=== PATIENT | male | born 1965 | race Caucasian/White ===

== ENCOUNTER → 2016-07-16 | Outpatient (CLI) | payer BC ==
--- NOTE | 2016-07-16 13:46 | XR ---
Cervical spine with flexion and extension views HISTORY: Foraminal stenosis 7 views of the cervical spine correlated to prior cervical spine MRI 10 May 2016, 2 view spine 08 April 2016 Postop changes are stable. Alignment is unchanged. Prevertebral soft tissues are normal. No listhesis on flexion and extension views. No significant foraminal encroachment evident. IMPRESSION: Stable postoperative findings.
== END | disposition home or self-care (01) ==
LOC: RADXRMAIN 11:29
PROVIDERS: ATTEND Neurological Surgery
DX: M99.71 Connective tissue and disc stenosis of intervertebral foramina of cervical region (principal); Z98.890 Other specified postprocedural states
CPT/HCPCS: 72052

== ENCOUNTER → 2018-04-02 | Outpatient (CLI) | payer BC ==
--- NOTE | 2018-04-04 12:55 | MR ---
EXAMINATION TYPE: MR cervical spine wo/w con DATE OF EXAM: 04/02/2018 COMPARISON: 05/10/2016 HISTORY: Cervicalgia CONTRAST: Performed utilizing 10 mL intravenous Gadavist gadolinium contrast. TECHNIQUE: Multiplanar multiecho imaging on a 3.0 Cinthia magnet is performed through the cervical spin e. FINDINGS: The craniovertebral junction is normal. Descent of the tonsils is less than 5 mm. No tonsil lar pegging or medullary kinking is evident.. Vertebral body alignment is normal. Postsurgical anjel nges are present C5-C6 and C7 from anterior cervical fusion. C7-T1: No focal disc herniation or significant disc bulge is evident. No spinal canal stenosis or n eural foraminal stenosis is present. C6-7: No focal disc herniation or significant disc bulge is evident. No spinal canal stenosis or marleny ral foraminal stenosis is present. C5-6: Broad-based central disc bulge is present with moderate anterior thecal sac compression. This h as some cord contact. Some mild cord deformity may be present. No cord signal abnormality is evident however.. C4-5: No focal disc herniation or significant disc bulge is evident. No spinal canal stenosis or marleny ral foraminal stenosis is present. C3-4: No focal disc herniation or significant disc bulge is evident. No spinal canal stenosis is pre sent. Some mild foraminal narrowing is present. C2-3: No focal disc herniation or significant disc bulge is evident. No spinal canal stenosis or marleny ral foraminal stenosis is present. No abnormal enhancement is evident. Right thyroid nodules again identified. This may have increased s lightly over the interval from 1.7 to 1.9 cm. Ultrasound thyroid is recommended for additional evalua tion. IMPRESSIONS: 1. Broad-based disc bulge C5-6 with mild anterior thecal sac compression, cord contact and some mild cord flattening. No signal abnormality within the cord is evident. AP spinal canal stenosis is not pr esent. Exam appears stable from 2016. 2. Enlarging right lobe thyroid nodule currently measuring 1.9 cm AP posterior medial right lobe thyr oid, up from 1.7 cm.
== END ==
LOC: RADMRIMAIN 18:14
PROVIDERS: ATTEND Psychiatry & Neurology Neurology
DX: M50.222 Other cervical disc displacement at C5-C6 level (principal); G95.29 Other cord compression
CPT/HCPCS: 72156; A9585

== ENCOUNTER → 2019-07-14 | Outpatient (CLI) | payer BC ==
--- NOTE | 2019-07-14 19:06 | MR ---
EXAMINATION TYPE: MR cervical spine wo con DATE OF EXAM: 07/14/2019 COMPARISON: Prior MR cervical spine 04/02/2018 HISTORY: Neck pain, stiffness, headaches, BUE radic, hx surgery 2019 TECHNIQUE: Multiplanar, multisequence images of the cervical spine were acquired. C2-C3: No evidence for degenerative disc disease. No disc bulge/herniation or protrusion. No Canal stenosis. Foramina are patent bilaterally. C3-C4: There is foraminal encroachment on the right greater than left due to some facet arthropathy, uncovertebral joint hypertrophy, no disc herniation C4-C5: Bilateral foraminal encroachment is present, there is facet arthropathy, uncovertebral joint h ypertrophy, no disc herniation C5-C6: Posterior extension of heart disc is again seen causing mass effect on the anterior thecal sac and contacting the anterior cervical cord, there is some mild left-sided foraminal encroachment like ly due to some uncovertebral joint hypertrophy C6-C7: No evidence for degenerative disc disease. No disc bulge/herniation or protrusion. No Canal stenosis. Foramina are patent bilaterally. C7-T1: No evidence for degenerative disc disease. No disc bulge/herniation or protrusion. No Canal stenosis. Foramina are patent bilaterally. Cervical segments are intact with the exception of the laminectomies at the postop site. Patient is status post anterior cervical fusion and discectomy at C6-C7, prior fusion present at C5-6 with inter vertebral metallic device again seen, posterior fusion present C5-C7. Susceptibility artifact present due to patient's hardware. No significant spinal stenosis. There is stable and anatomical alignment. Cervical spinal cord is of normal signal. Craniovertebral junction relationships are within normal limits. IMPRESSION: Findings are similar to prior exam. Postop changes, degenerative disc disease and foraminal encroachm ent as described.
== END ==
LOC: RADMRIMAIN 16:50
PROVIDERS: ATTEND Nurse Practitioner Family
DX: M50.10 Cervical disc disorder with radiculopathy, unspecified cervical region (principal); Z98.890 Other specified postprocedural states
CPT/HCPCS: 72141

== ENCOUNTER → 2020-06-15 | Outpatient (CLI) | payer BC ==
--- NOTE | 2020-06-15 11:23 | FL ---
EXAMINATION TYPE: FL barium swallow w video DATE OF EXAM: 06/15/2020 MODIFIED SWALLOW / DEGLUTITION STUDY CLINICAL HISTORY: Dysphagia. History of multiple neck surgeries. TECHNIQUE: Deglutition study is performed utilizing thin liquid barium, honey and nectar thick liqui d barium, barium thick pudding, and barium coated cracker. 1 minute 11 seconds of fluoro time and 0 images obtained. COMPARISON: None. FINDINGS: The oral and pharyngeal phases show satisfactory initiation and propagation with all modali ties tested. Satisfactory mastication is seen with solid modalities tested. There is no evidence of penetration or aspiration with any modality tested. No significant pharyngeal residue was appreciate d. Surgical changes C5-C7 level with some ossific fusion, no suspicious large anterior osteophyte pro jection. IMPRESSION: Normal deglutition study. Please refer to speech therapist notes for further details if necessary.
--- NOTE | 2020-06-15 12:30 | US ---
EXAMINATION TYPE: US thyroid st tissue head/neck DATE OF EXAM: 06/15/2020 COMPARISON: 02/05/2012 CLINICAL HISTORY: 54-year-old male E04.1 SINGLE THYROID NODULE. TECHNIQUE: Multiple sonographic images of the thyroid gland are obtained. FINDINGS: GLAND SIZE: Right Lobe: 4.8 x 1.9 x 2.2 cm Overall Parenchyma: homogenous Left Lobe: 4.0 x 1.7 x 1.2 cm Overall Parenchyma: homogeneous Isthmus Thickness: 0.3 cm NODULES RIGHT: # of nodules measured on right: 1 1. 2.6 X 1.8 x 2.1 cm heterogeneous solid nodule that is wider than tall, with smooth margins with punctate calcifications. Prior size: 2.7 x 1.8 x 1.7 cm LEFT: # of nodules measured on left: 0 ISTHMUS: # of nodules measured in the isthmus: 0 Bilateral neck scanned, no evidence of lymphadenopathy. IMPRESSION: Solid nodule in the right lobe measures 2.6 x 2.1 cm with punctate calcifications. While the overall size is not significantly changed, the previous internal cystic component is decreased. If this was n ot previously sampled, FNA can be considered.
== END | disposition home or self-care (01) ==
LOC: RADUSWWP 10:16
PROVIDERS: ATTEND Family Medicine
DX: E04.1 Nontoxic single thyroid nodule (principal); R13.12 Dysphagia, oropharyngeal phase
CPT/HCPCS: 74230; 76536

== ENCOUNTER → 2020-06-18 | Outpatient (CLI) | payer BC ==
--- NOTE | 2020-06-18 10:03 | FL ---
EXAMINATION TYPE: FL barium swallow DATE OF EXAM: 06/18/2020 CLINICAL HISTORY: History of multiple prior neck surgeries with dysphagia. TECHNIQUE: A double contrast esophagram is performed utilizing air and barium. A total of 17 second s of fluoroscopic time was utilized during procedure and 47 images obtained COMPARISON: Modified barium swallow 3 days ago. Cervical spine x-rays 2017. FINDINGS: The esophagus shows satisfactory motility and emptying into the stomach. No diverticulum. P osterior interpedicular rods and screws transfix C5-C7 levels, there is anterior fusion plate at C6-C 7 level, there is additional fusion hardware at C5-C6 level. There is desired ossific fusion of the C 5-C7 vertebra redemonstrated. No suspicious anterior bony projections. No evidence of fixed hiatal he rnia or stricture noted. No Intraluminal mass. Small sliding-type hiatal hernia noted towards end of study. No significant gastroesophageal reflux was seen during real time performance of this study. IMPRESSION: No significant abnormality is seen to account for patient's symptoms.
== END | disposition home or self-care (01) ==
LOC: RADFLMAIN 09:16
PROVIDERS: ATTEND Family Medicine
DX: R13.12 Dysphagia, oropharyngeal phase (principal)
CPT/HCPCS: 74220

== ENCOUNTER → 2021-12-23 | Outpatient (CLI) | payer BC ==
--- NOTE | 2021-12-24 04:38 | MR ---
EXAMINATION TYPE: MR cervical spine wo/w con DATE OF EXAM: 12/23/2021 COMPARISON: 07/14/2019 HISTORY: Bilateral upper extremity numbness, history of multiple surgeries CONTRAST: Standard multiplanar, multisequence MRI departmental protocol images were obtained without contrast a nd with 10 mL intravenous Gadavist gadolinium contrast. The cervical vertebra have fairly normal alignment. There is metal artifact from anterior fusion surg edilberto in the lower cervical spine from C5 to C7. Cervical spinal cord has normal signal pattern. No angelina ma. No spinal stenosis. There is small posterior endplate spur formation at C5-6 without significant impingement on the spinal canal. No spinal stenosis. Spinal canal measures 10 mm at the narrowest poi nt. The brainstem is intact. There is metal artifact from posterior fusion surgery at C5 and C6 and C 7. No pathologic enhancement. No evidence of cervical paraspinal mass. IMPRESSION: Anterior and posterior fusion surgery at lower cervical spine. No spinal stenosis. No fracture seen. No adverse change compared to old exam.
== END | disposition home or self-care (01) ==
LOC: RADMRIMAIN 19:05
PROVIDERS: ATTEND Internal Medicine
DX: M54.2 Cervicalgia (principal); M43.22 Fusion of spine, cervical region
CPT/HCPCS: 72156; A9585

== ENCOUNTER 2022-06-03 09:28 | Observation (INO) | payer BC ==
--- NOTE | 2022-06-03 10:52 | ED ---
General Adult HPI - General Chief complaint: Neuro Symptoms/Deficit Stated complaint: lt sided tingling/numbness x3 wks Time Seen by Provider: 06/03/22 09:50 Source: patient Mode of arrival: ambulatory Limitations: no limitations - History of Present Illness Initial comments: Dictation was produced using [employer] dictation software. please excuse any grammatical, word or spelling errors. Chief Complaint: 56-year-old male presents to emergency department for sending facial and extremity symptoms History of Present Illness: Is a 56-year-old male who has past medical history of chronic neck pain and cervical spinal surgery. Patient states that over the last 3 weeks she's been having a strange episodes where he would intermittently experience facial numbness, facial cyanosis and extremity numbness. States he's been answered. With upper extremity exertion. Patient denies any chest pain or shortness of breath. He also would report that his vision gets slightly blurry along with the paresthesias experience. Patient has chronic neck pain. States that he has tightness in her shoulders. No syncope or presyncope The ROS documented in this emergency department record has been reviewed and confirmed by me. Those systems with pertinent positive or negative responses have been documented in the HPI. All other systems are other negative and/or noncontributory. PHYSICAL EXAM: General Impression: Alert and oriented x3, not in acute distress HEENT: Normocephalic atraumatic, extra-ocular movements intact, pupils equal and reactive to light bilaterally, mucous membranes moist, fullness to the supraclavicular space bilaterally Cardiovascular: Heart regular rate and rhythm Chest: Able to complete full sentences, no retractions, no tachypnea Abdomen: abdomen soft, non-tender, non-distended, no organomegaly Musculoskeletal: Pulses present and equal in all extremities, no peripheral edema Motor: no focal deficits noted Neurological: CN II-XII grossly intact, no focal motor or sensory deficits noted Skin: Intact with no visualized rashes Psych: Normal affect and mood ED course: 56-year-old male presents to the emergency room for strange symptoms of skin discoloration to the face and paresthesias to the extremity and face. Vital signs upon arrival shows blood pressure 232/129, worse vital signs within acceptable limits. Nursing notes and chart review was performed My EKG interpretation: Ventricular rate 75, sinus rhythm,. Interval 172, QRS 86, QTC 391. No IL prolongation, no QTC prolongation, no ST or T-wave changes noted. Overall, this EKG is unremarkable Laboratory evaluation obtained. Labs are unremarkable. CT angiography of the head and neck was obtained. I requested the radiology to include the upper chest. No evidence of any acute processes. Patient reevaluated at bedside found with stable medical condition. Symptoms are worrisome for CVA causing left lower facial and left hand sensory deficit along with associateds elevated blood pressure. Patient be admitted to [facility] with consultation to neurology. Patient given aspirin. Was pt. sent in by a medical professional or institution? @ no Did you speak to anyone other than the patient for history? @ Did you review nursing and triage notes? @ yes, agree Were old charts reviewed? @ no Differential Diagnosis? @ MDM Differential Altered Mental Status: Hypoglycemia, DKA, hypercapnia, ETOH, overdose, CO poisoning, trauma, myxedema coma, HTN encephalopathy, infection, encephalitis, psychosis, intercranial hemorrhage, hepatic encephalopathy, meningitis, CVA this is not meant to be an all-inclusive list EKG interpreted by me (3pts min.)? @Yes, see above X-rays interpreted by me (1pt min.)? @ none CT interpreted by me (1pt min.)? @, See above U/S interpreted by me (1pt. min.)? @ none What testing was considered but not performed? (CT, X-rays, U/S, labs)? Why? @ no What meds were considered but not given? Why? @ no Did you discuss the management of the patient with other professionals? @Spoke with hospitalist, Dr. Connor Did you reconcile home meds? @ none Was smoking cessation discussed for >3mins.? @ none Was critical care preformed (if so, how long)? @ none Were there social determinants of health that impacted care today? How? (Homelessness, low income, unemployed, alcoholism, drug addiction, transportation, low edu. Level, literacy, decrease access to med. care, [facility], rehab)? @ no Was there de-escalation of care discussed even if they declined? (Discuss DNR or withdrawal of care, Hospice)? @Not applicable What co-morbidities impacted this encounter? (DM, HTN, Smoking, COPD, CAD, Cancer, CVA, Hep., AIDS, mental health diagnosis, sleep apnea, morbid obesity)? @ History of chronic neck pain made differential more broad Was patient admitted / discharged? @Admitted Undiagnosed new problem with uncertain prognosis? @ yes Drug Therapy requiring intensive monitoring for toxicity (Heparin, Nitro, Insulin, Cardizem)? @ none Were any procedures done? @ none Diagnosis/symptom? @Neuropathic symptoms suspicious for cerebrovascular accident Acute, or Chronic, or Acute on Chronic? @Acute on chronic Uncomplicated (without systemic symptoms) or Complicated (systemic symptoms)? @ default Side effects of treatment? @ none Exacerbation, Progression, or Severe Exacerbation] @ no Poses a threat to life or bodily function? @ no - Related Data Home Medications Medication Instructions Recorded Confirmed Ibuprofen [Motrin] 800 mg PO Q8H PRN 06/03/22 06/03/22 Multivitamins, Thera [Multivitamin 1 tab PO DAILY 06/03/22 06/03/22 (formulary)] Omeprazole [PriLOSEC] 20 mg PO DAILY 06/03/22 06/03/22 Allergies Allergy/AdvReac Type Severity Reaction Status Date / Time No Known Allergies Allergy Verified 06/03/22 12:36 Review of Systems ROS Statement: Those systems with pertinent positive or pertinent negative responses have been documented in the HPI. ROS Other: All systems not noted in ROS Statement are negative. Past Medical History Past Medical History: Hypertension Additional Past Medical History / Comment(s): Neck pain History of Any Multi-Drug Resistant Organisms: None Reported Past Surgical History: Orthopedic Surgery Additional Past Surgical History / Comment(s): Neck Past Psychological History: No Psychological Hx Reported Smoking Status: Never smoker Past Alcohol Use History: Occasional Past Drug Use History: Marijuana General Exam Limitations: no limitations Course Vital Signs 06/03/22 06/03/22 06/03/22 09:36 10:56 12:00 Temperature 98.4 F Pulse Rate 83 Pulse Rate [ 83 Left Sitting Pulse Oximetery ] Respiratory 18 18 Rate Blood Pressure 232/129 Blood Pressure 193/115 193/124 [Left Arm Sitting] Blood Pressure 194/121 [Right Arm Sitting] O2 Sat by Pulse 98 97 Oximetry Medical Decision Making - Lab Data Result diagrams: 06/03/22 10:54 06/03/22 10:54 Lab Results 06/03/22 06/03/22 06/03/22 Range/Units 10:54 10:54 10:54 WBC 9.7 (3.8-10.6) k/uL RBC 4.87 (4.30-5.90) m/uL Hgb 15.7 (13.0-17.5) gm/dL Hct 45.0 (39.0-53.0) % MCV 92.4 (80.0-100.0) fL MCH 32.2 (25.0-35.0) pg MCHC 34.9 (31.0-37.0) g/dL RDW 13.0 (11.5-15.5) % Plt Count 238 (150-450) k/uL MPV 8.2 Neutrophils % 58 % Lymphocytes % 30 % Monocytes % 6 % Eosinophils % 3 % Basophils % 1 % Neutrophils # 5.6 (1.3-7.7) k/uL Lymphocytes # 2.9 (1.0-4.8) k/uL Monocytes # 0.6 (0-1.0) k/uL Eosinophils # 0.3 (0-0.7) k/uL Basophils # 0.1 (0-0.2) k/uL PT 9.8 (9.0-12.0) sec INR 0.9 (<1.2) APTT 25.6 (22.0-30.0) sec Sodium 141 (137-145) mmol/L Potassium 4.4 (3.5-5.1) mmol/L Chloride 104 (98-107) mmol/L Carbon Dioxide 25 (22-30) mmol/L Anion Gap 12 mmol/L BUN 21 H (9-20) mg/dL Creatinine 0.83 (0.66-1.25) mg/dL Est GFR (CKD-EPI)AfAm >90 (>60 ml/min/1.73 sqM) Est GFR (CKD-EPI)NonAf >90 (>60 ml/min/1.73 sqM) Glucose 110 H (74-99) mg/dL Calcium 9.8 (8.4-10.2) mg/dL Troponin I (0.000-0.034) ng/mL 06/03/22 Range/Units 10:54 WBC (3.8-10.6) k/uL RBC (4.30-5.90) m/uL Hgb (13.0-17.5) gm/dL Hct (39.0-53.0) % MCV (80.0-100.0) fL MCH (25.0-35.0) pg MCHC (31.0-37.0) g/dL RDW (11.5-15.5) % Plt Count (150-450) k/uL MPV Neutrophils % % Lymphocytes % % Monocytes % % Eosinophils % % Basophils % % Neutrophils # (1.3-7.7) k/uL Lymphocytes # (1.0-4.8) k/uL Monocytes # (0-1.0) k/uL Eosinophils # (0-0.7) k/uL Basophils # (0-0.2) k/uL PT (9.0-12.0) sec INR (<1.2) APTT (22.0-30.0) sec Sodium (137-145) mmol/L Potassium (3.5-5.1) mmol/L Chloride (98-107) mmol/L Carbon Dioxide (22-30) mmol/L Anion Gap mmol/L BUN (9-20) mg/dL Creatinine (0.66-1.25) mg/dL Est GFR (CKD-EPI)AfAm (>60 ml/min/1.73 sqM) Est GFR (CKD-EPI)NonAf (>60 ml/min/1.73 sqM) Glucose (74-99) mg/dL Calcium (8.4-10.2) mg/dL Troponin I <0.012 (0.000-0.034) ng/mL Disposition Clinical Impression: Paresthesias Disposition: ADMITTED IP TO THIS HOSP Condition: Fair Referrals: Kamala Neves MD [Primary Care Provider] - 1-2 days Decision Time: 13:37
[2022-06-03 11:04] LABS: Basophils # (A) 0.1 k/uL (0-0.2); Basophils % (A) 1 %; Eosinophils # (A) 0.3 k/uL (0-0.7); Eosinophils % (A) 3 %; HGB 15.7 gm/dL (13.0-17.5); Lymphocytes # (A) 2.9 k/uL (1.0-4.8); Lymphocytes % (A) 30 %; MCH 32.2 pg (25.0-35.0); MCHC 34.9 g/dL (31.0-37.0); MCV 92.4 fL (80.0-100.0); Mean Platelet Volume 8.2; Monocytes # (A) 0.6 k/uL (0-1.0); Monocytes % (A) 6 %; Neutrophils # (A) 5.6 k/uL (1.3-7.7); Neutrophils % (A) 58 %; Platelet Count 238 k/uL (150-450); RBC 4.87 m/uL (4.30-5.90); WBC 9.7 k/uL (3.8-10.6)
[2022-06-03 11:29] LABS: African American GFR (CKD) >90 (>60 ml/min/1.73 sqM); Anion Gap 12 mmol/L; Blood Urea Nitrogen 21 mg/dL (9-20); Calcium 9.8 mg/dL (8.4-10.2); Carbon Dioxide 25 mmol/L (22-30); Chloride 104 mmol/L (98-107); Glucose 110 mg/dL (74-99); Non-African American GFR(CKD) >90 (>60 ml/min/1.73 sqM); Potassium 4.4 mmol/L (3.5-5.1); Sodium 141 mmol/L (137-145)
[2022-06-03 11:33] LABS: INR 0.9 (<1.2); Partial Thromboplastin Time 25.6 sec (22.0-30.0); Prothrombin Time 9.8 sec (9.0-12.0)
--- NOTE | 2022-06-03 12:32 | CT ---
EXAMINATION TYPE: CT angio head neck CT DLP: 1192.2 mGycm, Automated exposure control for dose reduction was used. 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 Pt c/o LT side numbness, tingling x3 weeks. LT side facial swe lling/color change TECHNIQUE: Axially acquired helical CT angiogram of the head and neck was obtained with contrast. Axi al images are supplemented with 3D reconstructions which were post-processed at an independent [facility]st [facility]. NASCET criteria used. Contrast used:65 mL of Isovue 370 with IV Contrast, Oral contrast used: None. FINDINGS: CTA HEAD: No evidence of acute intracranial hemorrhage, mass effect, or midline shift. The ventricles, sulci, a nd cisterns are unremarkable. The visualized portions of the internal carotid arteries, middle cerebral arteries, anterior cerebral arteries, and posterior cerebral arteries are patent. The basilar and vertebral arteries are patent. CTA NECK: Right Carotid System: The common carotid artery and external carotid artery are patent. The carotid bifurcation demonstrate s calcified and noncalcified plaque with less than 25% stenosis. Evidence of hemodynamically signific ant stenosis. The remaining portions of the internal carotid artery demonstrate normal size without s ignificant narrowing. Left Carotid System: The common carotid artery and external carotid artery are patent. The carotid bifurcation demonstrate s calcified and noncalcified plaque with 25%. The remaining portions of the internal carotid artery d emonstrate normal size without significant narrowing. Vertebral arteries are patent without evidence hemodynamically significant stenosis. There is a three-vessel aortic arch. The origins of the great vessels are patent. No evidence of hemo dynamically significant stenosis. No evidence of mediastinal mass or lymphadenopathy. The lung apices are clear without evidence of mass or suspicious nodule. Postsurgical changes to the spine with fixa tion hardware in place. Right thyroid gland nodule with some peripheral calcification measuring up to 1.1 cm. IMPRESSION: 1. No evidence of dissection of the cervical internal carotid arteries or vertebral arteries or any e vidence of significant stenosis at the carotid bifurcations. 2. No evidence of intracranial high-grade stenosis or intracranial aneurysm. 3. No acute thoracic process. No evidence of mass. 4. Right thyroid gland nodule similar to prior ultrasound on 06/15/2020
[2022-06-03] MEDS ORDERED: ASPIRIN 81 MG PO STA (13:22)
[2022-06-03] MEDS ORDERED: NALOXONE 0.4 MG/ML 1 ML VIAL IV PRN (13:31)
[2022-06-03] MEDS: SODIUM CHLORIDE 0.9% 1,000 ML IV SCH (13:46)
[2022-06-03] MEDS ORDERED: IBUPROFEN 800 MG TAB PO STA (14:13)
--- NOTE | 2022-06-03 15:44 | P.CNNES ---
History of Present Illness Consult date: 06/03/22 Requesting physician: Michele Evans Reason for Consult: suspect CVA History of Present Illness: This is a 56-year-old gentleman with significant chronic neck pain status post 5 neck surgeries who presented because of worsening numbness over the left side of face as well as visual disturbance. Patient stated that he is been having the tingling over the left V2 distribution for years but in the last 1 month whenever his right neck pain get worse he has numbness over the left V2 distribution that goes to the entire left face with visual disturbance for the past 1-1/2 months and has been constant. He stated that he was told by his that his nose lips turn blue when this happens. He said that this only happens when it he has severe right neck pain and neck pain he has been having it for years and it radiates to the right shoulder left shoulder and the upper neck and again the neck pain is over the right posterior neck region. He denies any focal weakness in the lower extremities, any difficulty getting his words out. He had 5 surgeries to the neck and the last surgery was about 2 years ago but continues to have a ongoing neck pain. His surgeries was over C5-C6-C7 region. He was evaluated by different surgeons. He stated that the surgery was at anterior approach as well as posterior approach. He is been having some difficulty swallowing since he had that neck surgery. She denies history of diabetes or high blood pressure or heart attack. Patient denies off any family history of multiple sclerosis. Patient denies off tobacco use or illicit drug use. He socially drinks alcohol. He denies off any family history of young stroke. Of note for his numbness patient tried gabapentin but had side effects to them. Alert would not be approved by insurance according to him. Some of the workup during this hospital visit consisted of: CBC with differential is unremarkable Chemistry panels glucose is 110 ambulance 21 otherwise rest is unremarkable. CT angiography of the head and neck is reported as no evidence of dissection of cervical internal carotid arteries or vertebral arteries or any evidence of significant stenosis at the carotid bifurcation. No evidence of intracranial high-grade stenosis or intracranial aneurysm. No acute thoracic process. No evidence of mass. Right thyroid gland nodule similar to prior ultrasound on 06/15/2020 Review of Systems Review of system: The 12 point system was reviewed and apparent positive and negative per HPI. Past Medical History Past Medical History: Hypertension Additional Past Medical History / Comment(s): Neck pain History of Any Multi-Drug Resistant Organisms: None Reported Past Surgical History: Orthopedic Surgery Additional Past Surgical History / Comment(s): Neck Past Psychological History: No Psychological Hx Reported Smoking Status: Never smoker Past Alcohol Use History: Occasional Past Drug Use History: Marijuana Medications and Allergies Home Medications Medication Instructions Recorded Confirmed Type Ibuprofen [Motrin] 800 mg PO Q8H PRN 06/03/22 06/03/22 History Multivitamins, Thera [Multivitamin 1 tab PO DAILY 06/03/22 06/03/22 History (formulary)] Omeprazole [PriLOSEC] 20 mg PO DAILY 06/03/22 06/03/22 History Allergies Allergy/AdvReac Type Severity Reaction Status Date / Time No Known Allergies Allergy Verified 06/03/22 12:36 Physical Examination - Vital Signs Vital Signs: Vital Signs Temp Pulse Pulse Resp BP BP BP 06/03/22 12:00 83 18 193/124 06/03/22 10:56 193/115 194/121 06/03/22 09:36 98.4 F 83 18 232/129 Pulse Ox 06/03/22 12:00 97 06/03/22 10:56 06/03/22 09:36 98 Intake and Output 06/03/22 06/03/22 06/03/22 06:59 14:59 22:59 Other: Weight 108.862 kg GENERAL: The patient is lying in bed and is not in acute distress. CHEST: The heart rate is regular rate rhythm. No murmurs to auscultation. LUNG: Clear to auscultation bilaterally no wheezing noted throughout. Not labored breathing. ABDOMEN/GI: Bowel sounds present in all 4 quadrants. No tenderness to palpation throughout. NEUROLOGICAL: Higher mental function: The patient is awake, alert, oriented to self, place and time. Patient is following commands. No aphasia and no neglect. Cranial nerves: The pupils are round, equal and reactive to light and accommodat ion. Visual chambers are full to confrontation throughout. Extraocular movement is intact no nystagmus is noted. Facial sensation is decrease to touch over the left V2 but otherwise normal throughout. The facial strength is normal throughout. Hearing is normal bilaterally to hand rub. Tongue is midline and moved [id number] without any difficulty. No dysarthria is noted. Shoulder shrug is normal bilaterally. Motor: The strength are uppers forearm flexion/extension are 4+ to 5-, proximal are 5- for extension while flexion are 5/5. Lowers are 5 over 5 throughout. Normal tone and bulk. Has old scars over the bilateral elbow region from prior surgeries. Cerebellum: Normal finger to nose bilaterally. Sensation: Sensation is normal to touch throughout. Reflexes (right/left): Biceps 3+; triceps2+; brachioradialis2+; patellar 2+; ankles 2+. Plantars are mute bilaterally. Results - Laboratory Findings CBC and BMP: 06/03/22 10:54 06/03/22 10:54 Abnormal Lab Findings: Abnormal Labs 06/03/22 10:54 BUN 21 H Glucose 110 H Assessment and Plan Assessment: This is a 56-year-old gentleman with has chronic ongoing posterior neck pain status post 5 cervical surgery (C5-C6-C7, anterior and posterior approach) who has been having tingling over the left V2 distribution for years but in the past 1-1/2 month has worsened when he has severe posterior neck pain and now has numbness over the left side of the face over past 1.5 months and has become constant. * Paresthesia over the left side of the face that progressively getting worse over the last one and half months and he notices it when he and he has severe neck pain: Possible due to his ongoing cervical issues especially since has ongoing neck pain with hyperreflexia of uppers. Rule out any intracranial process. * Ongoing right posterior neck pain tatus post 5 cervical surgery (C5-C6-C7, anterior and posterior approach) and last surgery was 2 years ago Plan: I ordered MRI of the brain with and without to rule out any intracranial process that would explain his symptoms such as a stroke versus mass versus demyelination. Ordered vitamin B12, folate, TSH, hemoglobin A1c for the paresthesia I consulted orthopedic surgery team for his ongoing neck pain and has brisk reflexes. She was notified that to hold off until the MRI but he is adamant on seeing a specialist for his ongoing neck pain. Patient does have a stroke then the will get the rest the stroke workup and will start the patient on aspirin and Lipitor but will hold off for now PT and OT are consulted We'll defer the rest of the medical management to primary team The plan was discussed with the patient. Thank you for the consultation Time with Patient: Greater than 30
[2022-06-03] MEDS: ACETAMINOPHEN TAB 325 MG TAB PO PRN (18:51)
[2022-06-03] MEDS: KETOROLAC 15 MG/ML 1 ML VIAL IVP PRN (22:17)
--- NOTE | 2022-06-03 22:27 | P.HPIM ---
History of Present Illness H&P Date: 06/03/22 Chief Complaint: Left-sided tingling and numbness 56-year-old male who has past medical history of chronic neck pain and cervical spinal surgery. Patient states that over the last 3 weeks she's been having a strange episodes where he would intermittently experience facial numbness, facial cyanosis and extremity numbness. States he's been answered. With upper extremity exertion. Patient denies any chest pain or shortness of breath. He also would report that his vision gets slightly blurry along with the paresthesias experience. Patient has chronic neck pain. States that he has tightness in her shoulders. No syncope or presyncope Blood work completed in ED reveals a WBC of 9.7, hemoglobin 15.7 and platelet count of 238, sodium 141, potassium 4.4, BUN/creatinine of 21/0.83 and blood glucose of 110; troponin less than 0.012 CT angiography of the head and neck is reported as no evidence of dissection of cervical internal carotid arteries or vertebral arteries or any evidence of significant stenosis at the carotid bifurcation. No evidence of intracranial h igh-grade stenosis or intracranial aneurysm. No acute thoracic process. No evidence of mass. Right thyroid gland nodule similar to prior ultrasound on 06/15/2020 Past Medical History Past Medical History: Hypertension Additional Past Medical History / Comment(s): Neck pain History of Any Multi-Drug Resistant Organisms: None Reported Past Surgical History: Orthopedic Surgery Additional Past Surgical History / Comment(s): Neck Past Psychological History: No Psychological Hx Reported Smoking Status: Never smoker Past Alcohol Use History: Occasional Past Drug Use History: Marijuana Medications and Allergies Home Medications Medication Instructions Recorded Confirmed Type Ibuprofen [Motrin] 800 mg PO Q8H PRN 06/03/22 06/03/22 History Multivitamins, Thera [Multivitamin 1 tab PO DAILY 06/03/22 06/03/22 History (formulary)] Omeprazole [PriLOSEC] 20 mg PO DAILY 06/03/22 06/03/22 History Allergies Allergy/AdvReac Type Severity Reaction Status Date / Time No Known Allergies Allergy Verified 06/03/22 12:36 Physical Exam Vitals: Vital Signs Temp Pulse Pulse Resp BP BP BP 06/03/22 12:00 83 18 193/124 06/03/22 10:56 193/115 194/121 06/03/22 09:36 98.4 F 83 18 232/129 Pulse Ox 06/03/22 12:00 97 06/03/22 10:56 06/03/22 09:36 98 Intake and Output 06/02/22 06/03/22 06/03/22 22:59 06:59 14:59 Other: Weight 108.862 kg General Impression: Alert and oriented x3, not in acute distress HEENT: Normocephalic atraumatic, extra-ocular movements intact, pupils equal and reactive to light bilaterally, mucous membranes moist, fullness to the supraclavicular space bilaterally Cardiovascular: Heart regular rate and rhythm Chest: Able to complete full sentences, no retractions, no tachypnea Abdomen: abdomen soft, non-tender, non-distended, no organomegaly Musculoskeletal: Pulses present and equal in all extremities, no peripheral edema Motor: no focal deficits noted Neurological: CN II-XII grossly intact, no focal motor or sensory deficits noted Skin: Intact with no visualized rashes Psych: Normal affect and mood Results CBC & Chem 7: 06/03/22 10:54 06/03/22 10:54 Labs: Abnormal Lab Results - Last 24 Hours (Table) 06/03/22 Range/Units 10:54 BUN 21 H (9-20) mg/dL Glucose 110 H (74-99) mg/dL Assessment and Plan Assessment: 1. Paresthesias; rule out TIA versus CVA - Patient did have CT angiography of the head and neck is reported as no evidence of dissection of cervical internal carotid arteries or vertebral arteries or any evidence of significant stenosis at the carotid bifurcation. No evidence of intracranial high-grade stenosis or intracranial aneurysm. No acute thoracic process. No evidence of mass. Right thyroid gland nodule similar to prior ultrasound on 06/15/2020 -- MRI of the brain with and without to rule out any intracranial process that would explain his symptoms such as a stroke versus mass versus demyelination. Ordered vitamin B12, folate, TSH, hemoglobin A1c for the paresthesia 2. Right posterior neck pain; patient is status post 5 cervical surgeries with last one done 2 years ago -- Orthopedic surgery is consulted - Patient takes Motrin 800 mg 3 times a day when necessary 3. Hypertension; currently not on any antihypertensive therapy 4. Gastroesophageal reflux disease; continue with home PPI therapy 5. Mild TAVO; increase fluid intake; we will monitor renal function and electrolytes DVT prophylaxis; SCDs CODE STATUS; full code
[2022-06-03 23:52] LABS: Glucose,Whole Blood 105 mg/dL (70-110)
[2022-06-04] MEDS ORDERED: hydrALAZINE HCL 20 MG/ML 1 ML VIAL IVP STA (00:58)
[2022-06-04] MEDS: lisinopriL 10 MG TAB PO SCH ×2 (01:14→08:20)
[2022-06-04] MEDS ORDERED: KETOROLAC 15 MG/ML 1 ML VIAL IVP SCH ×3 (04:00→21:58)
[2022-06-04] MEDS: KETOROLAC 15 MG/ML 1 ML VIAL IVP PRN ×2 (06:53→12:52)
[2022-06-04 07:41] LABS: Basophils # (A) 0.1 k/uL (0-0.2); Basophils % (A) 1 %; Eosinophils # (A) 0.3 k/uL (0-0.7); Eosinophils % (A) 3 %; HCT 42.1 % (39.0-53.0); HGB 15.1 gm/dL (13.0-17.5); Lymphocytes # (A) 3.1 k/uL (1.0-4.8); Lymphocytes % (A) 32 %; MCH 32.8 pg (25.0-35.0); MCHC 35.8 g/dL (31.0-37.0); MCV 91.6 fL (80.0-100.0); Mean Platelet Volume 8.7; Monocytes # (A) 0.8 k/uL (0-1.0); Monocytes % (A) 8 %; Neutrophils # (A) 5.2 k/uL (1.3-7.7); Neutrophils % (A) 53 %; Platelet Count 203 k/uL (150-450); RDW 13.6 % (11.5-15.5); WBC 9.7 k/uL (3.8-10.6)
[2022-06-04 08:11] LABS: African American GFR (CKD) >90 (>60 ml/min/1.73 sqM); Anion Gap 9 mmol/L; Blood Urea Nitrogen 22 mg/dL (9-20); Calcium 9.3 mg/dL (8.4-10.2); Carbon Dioxide 26 mmol/L (22-30); Chloride 103 mmol/L (98-107); Glucose 108 mg/dL (74-99); Non-African American GFR(CKD) >90 (>60 ml/min/1.73 sqM); Sodium 138 mmol/L (137-145)
--- NOTE | 2022-06-04 09:11 | P.CNOR ---
History of Present Illness - [facility] Consult date: 06/04/22 Requesting physician: Roland Orozco Consult reason: neck pain History of present illness: History of Presenting Illness Patient is a pleasant 56-year-old male who presents to the ER with complaint of left facial numbness and tingling, chronic neck pain, and left upper extremity weakness. Patient states that over the last 3 weeks she's been having a strange episodes where he would intermittently experience left facial numbness, facial cyanosis and Left side extremity numbness and tingling. Patient has a significant orthopedic history of cervical spine surgeries. He is a patient of Dr. Jarocho Grubbs. The last procedure was performed approx 2 years ago. Patient states he has been in contact with his surgeon and will be following up outpati ent. Patient is currently resting in bed. Informed him that Dr. Orozco has ordered a MRI of the brain to r/o CVA. Patient verbalizes understanding. He currently denies any fever/chills, nausea/vomiting, or chest pain. Review of Systems Pertinent positives and negatives as discussed in HPI, a complete review of systems was performed and all other systems are negative. Physical Examination General: The patient is awake and alert, in no acute distress Skin: Skin is warm and dry with no obvious rashes or lesions. Hairy patches absent, no dorsal skin dimples, no cafe au lait spots, well healed anterior and posterior cervical incisions. Eye: Pupils are equal, round and reactive to light, extra-ocular movements are intact; there is normal conjunctiva bilaterally. Neck: The neck is supple, there is no tenderness and ROM intact. Cardiovascular: There is a regular rate and rhythm. No murmur, rub or gallop is appreciated. Respiratory: Lungs are clear to auscultation, respirations are non-labored, b reath sounds are equal. Gastrointestinal: Soft, non-distended, non-tender abdomen. Back: There is no tenderness to palpation in the midline, paralumbar, parathoracic or buttocks region. There is no obvious deformity. Musculoskeletal: ROM limited secondary to pain and stiffness from surgical proc edure. Shoulder abduction 5/5, elbow flexors 5/5, wrist dorsiflexors 5/5. finger abductor 5/5, dry cleaning counter clerk 5/5, hip flexor 5/5, knee flexor 5/5, ankle dorsiflexor 5/5, ankle plantarflexion 5/5 and extensor hallucis 5/5. Neurological: CN 2-12 intact. There are no obvious motor or sensory deficits. Movement and coordination equal and intact. Sensory exam to light touch intact C5-T1 and intact from L2-S1. Reflexes 2/4 in bilateral upper and lower extremities. Negative Denis in RUE, Positive Denis in LUE, Negative babinski, and clonus signs. Psychiatric: Cooperative, appropriate mood & affect, normal judgment. Assessment and Plan 1. Chronic neck pain 2. Multiple cervical surgeries 3. Left upper extremity radiculopathy -Awaiting MRI of the brain to r/o CVA -Continue pain management -Patient to follow up with Dr. Jarocho Grubbs in office We will continue to follow. I reviewed and discussed this case with my attending Dr. Ayesr, whom has reviewed this chart and films and is in agreement with assessment and plan of care as outlined above. I have personally seen and examined the patient, performed the documentation and the assessment and plan as written. Number of minutes spent on the visit: 15m. Past Medical History Past Medical History: Hypertension Additional Past Medical History / Comment(s): Neck pain, HTN before last sx went on lisinopril after sx went back down and dr. roach/lu lisinopril. History of Any Multi-Drug Resistant Organisms: None Reported Past Surgical History: Orthopedic Surgery Additional Past Surgical History / Comment(s): Neck, bilat elbow Past Anesthesia/Blood Transfusion Reactions: No Reported Reaction Past Psychological History: No Psychological Hx Reported Smoking Status: Never smoker Past Alcohol Use History: Occasional Past Drug Use History: Marijuana - Past Family History Mother Additional Family Medical History / Comment(s): "Have had lots of stents put in" Sister(s) Additional Family Medical History / Comment(s): "Have had lots of stents put in" Medications and Allergies Home Medications Medication Instructions Recorded Confirmed Type Ibuprofen [Motrin] 800 mg PO Q8H PRN 06/03/22 06/03/22 History Multivitamins, Thera [Multivitamin 1 tab PO DAILY 06/03/22 06/03/22 History (formulary)] Omeprazole [PriLOSEC] 20 mg PO DAILY 06/03/22 06/03/22 History Allergies Allergy/AdvReac Type Severity Reaction Status Date / Time No Known Allergies Allergy Verified 06/03/22 12:36 Results - Labs Labs: Abnormal Lab Results - Last 24 Hours (Table) 06/03/22 06/04/22 Range/Units 10:54 07:21 BUN 21 H 22 H (9-20) mg/dL Glucose 110 H 108 H (74-99) mg/dL H & H 06/03/22 06/04/22 Range/Units 10:54 07:21 Hgb 15.7 15.1 (13.0-17.5) gm/dL Hct 45.0 42.1 (39.0-53.0) % Coagulation 06/03/22 Range/Units 10:54 INR 0.9 (<1.2) Result Diagrams: 06/04/22 07:21 06/04/22 07:21
--- NOTE | 2022-06-04 11:09 | MR ---
EXAMINATION TYPE: MR brain wo/w con DATE OF EXAM: 06/04/2022 10:44 AM CLINICAL INDICATION:Male, 56 years old with history of left facial paresthesia with visual disturbanc e; COMPARISON: 06/03/2022 CT TECHNIQUE: Multi planar, multi sequence imaging was performed through the brain including: T1, T2, In version recovery, susceptibility weighted imaging and gradient echo imaging and Diffusion weighted im aging. The patient was then given intravenous contrast and multi planar, T1 fat-saturation images wer e obtained. IV Contrast: 11 cc Gadavist FINDINGS: The santos-white junctions, ventricular system, basal cisterns appear unremarkable. Optic nerves appear symmetric. Diffusion-weighted imaging shows no evidence of restricted diffusion to suggest acute/sub acute infarct. Intracranial arterial flow voids are maintained. Midline structures show no abnormalit y. The susceptibility weighted images do not reveal any evidence for micro-hemorrhage. After administ ration of gadolinium, no abnormal enhancement is seen. The bone marrow signal is within normal limits. Paranasal sinuses and mastoid air cells: Mild scattered paranasal sinus disease. Visualized orbits: Orbital contents are intact. IMPRESSION: No evidence of intracranial mass, acute/subacute infarct, or abnormal enhancement.
[2022-06-04] MEDS: SODIUM CHLORIDE 0.9% 1,000 ML IV SCH (12:49)
--- NOTE | 2022-06-04 13:05 | P.PN ---
Subjective Progress Note Date: 06/04/22 I am seeing the patient for the first time and he feels he is doing about the same. Denies any new neurological issues. Objective - Vital Signs Vital signs: Vital Signs Temp 98.6 F 06/04/22 08:00 Pulse 81 06/04/22 08:00 Resp 18 06/04/22 08:00 BP 127/74 06/04/22 08:00 Pulse Ox 96 06/04/22 08:00 FiO2 Intake & Output 06/03/22 06/04/22 06/04/22 18:59 06:59 18:59 Intake Total 80 Output Total 300 Balance 80 -300 Weight 108.862 kg 113.4 kg Intake: IV 80 Sodium Chloride 0.9% 1, 80 000 ml @ 20 mls/hr IV . Q24H CAREY Rx#:[id number] Output: Urine 300 Other: Voiding Method Toilet # Voids 0 1 # Bowel Movements 0 - Exam GENERAL: The patient is lying in bed and is not in acute distress. NEUROLOGICAL: Higher mental function: The patient is awake, alert, oriented to self, place and time. Patient is following commands. No aphasia and no neglect. Cranial nerves: The pupils are round, equal and reactive to light and accommodation. Visual chambers are full to confrontation throughout. Extraocular movement is intact no nystagmus is noted. Facial sensation is decrease to touch over the left V2 but otherwise normal throughout. The facial strength is normal throughout. Hearing is normal bilaterally to hand rub. Tongue is midline and moved [id number] without any difficulty. No dysarthria is noted. Shoulder shrug is normal bilaterally. Motor: The strength are uppers forearm flexion/extension are 4+ to 5-, proximal are 5- for extension while flexion are 5/5. Lowers are 5 over 5 throughout. Normal tone and bulk. Has old scars over the bilateral elbow region from prior surgeries. Cerebellum: Normal finger to nose bilaterally. Sensation: Sensation is normal to touch throughout. Reflexes (right/left): Biceps 3+; triceps2+; brachioradialis2+; patellar 2+; ankles 2+. Plantars are mute bilaterally. Some of the workup during this hospital visit consisted of: CBC with differential is unremarkable Chemistry panels glucose is 110 ambulance 21 otherwise rest is unremarkable. HbA1c: 5.[address] angiography of the head and neck is reported as no evidence of dissection of cervical internal carotid arteries or vertebral arteries or any evidence of significant stenosis at the carotid bifurcation. No evidence of intracranial high-grade stenosis or intracranial aneurysm. No acute thoracic process. No evidence of mass. Right thyroid gland nodule similar to prior ultrasound on 06/15/2020 MRI Brain w/ and w/o: No evidenceof intracranial mass, acute/subacute infarct, or abnormal enhancement. I personally reviewed MRI and agree with report. - Labs CBC & Chem 7: 06/04/22 07:21 06/04/22 07:21 Labs: Abnormal Lab Results - Last 24 Hours (Table) 06/04/22 Range/Units 07:21 BUN 22 H (9-20) mg/dL Glucose 108 H (74-99) mg/dL Assessment and Plan Assessment: This is a 56-year-old gentleman with has chronic ongoing posterior neck pain status post 5 cervical surgery (C5-C6-C7, anterior and posterior approach) who has been having tingling over the left V2 distribution for years but in the past 1-1/2 month has worsened when he has severe posterior neck pain and now has numbness over the left side of the face over past 1.5 months and has become constant. * Paresthesia over the left side of the face that progressively getting worse over the last one and half months and he notices it when he and he has severe neck pain: Possible due to his ongoing cervical issues especially since has ongoing neck pain with hyperreflexia of uppers. No stroke or mass on MRI Brain. * Ongoing right posterior neck pain tatus post 5 cervical surgery (C5-C6-C7, anterior and posterior approach) and last surgery was 2 years ago Plan: Pending Vitamin B12 level to rule out cause of paresthesia. Orthopedic surgery team for his ongoing neck pain and has brisk reflexes. She was notified that to hold off until the MRI but he is adamant on seeing a specialist for his ongoing neck pain. Patient does have a stroke then the will get the rest the stroke workup and will start the patient on aspirin and Lipitor but will hold off for now PT and OT are consulted We'll defer the rest of the medical management to primary team. The plan was discussed with the patient and his . Time with Patient: Less than 30
[2022-06-04 13:34] VITALS: PULSE 83; RESP 16; TEMP 98.5
[2022-06-04 14:51] VITALS: BP 147/85
--- NOTE | 2022-06-04 15:21 | P.DS ---
Providers Date of admission: 06/03/22 13:31 Expected date of discharge: 06/04/22 Attending physician: Ambrocio Connor MD Consults: 06/03/22 13:09 Consult Physician Routine Consulting Provider: Roland Orozco Consult Reason/Comments: suspect CVA Do you want consulting provider notified?: Yes 06/03/22 15:20 Consult Physician Routine Consulting Provider: Norm Ayers Consult Reason/Comments: ongoing neck pain. hx 5 neck surgies but still in pain with brisk reflex Do you want consulting provider notified?: Yes Primary care physician: Pura Sanchez [facility], [place] Course: 56-year-old gentleman with significant chronic neck pain status post 5 neck surgeries who presented because of worsening numbness over the left side of face as well as visual disturbance. Patient stated that he is been having the tingling over the left V2 distribution for years but in the last 1 month whenever his right neck pain get worse he has numbness over the left V2 distribution that goes to the entire left face with visual disturbance for the past 1-1/2 months and has been constant. He stated that he was told by his that his nose lips turn blue when this happens. He said that this only happens when it he has severe right neck pain and neck pain he has been having it for years and it radiates to the right shoulder left shoulder and the upper neck and again the neck pain is over the right posterior neck region. He denies any focal weakness in the lower extremities, any difficulty getting his words out. He had 5 surgeries to the neck and the last surgery was about 2 years ago but continues to have a ongoing neck pain. His surgeries was over C5-C6-C7 region. He was evaluated by different surgeons. He stated that the surgery was at anterior approach as well as posterior approach. He is been having some difficulty swallowing since he had that neck surgery. She denies history of diabetes or high blood pressure or heart attack. Patient denies off any family history of multiple sclerosis. Patient denies off tobacco use or illicit drug use. He socially drinks alcohol. He denies off any family history of young stroke. Of note for his numbness patient tried gabapentin but had side effects to them. Alert would not be approved by insurance according to him. Some of the workup during this hospital visit consisted of: CBC with differential is unremarkable Chemistry panels glucose is 110 ambulance 21 otherwise rest is unremarkable. CT angiography of the head and neck is reported as no evidence of dissection of cervical internal carotid arteries or vertebral arteries or any evidence of significant stenosis at the carotid bifurcation. No evidence of intracranial high-grade stenosis or intracranial aneurysm. No acute thoracic process. No evidence of mass. Right thyroid gland nodule similar to prior ultrasound on 06/15/2020 Patient was evaluated by neurology and was recommended MRI of the brain which was unremarkable Orthopedic surgery evaluated patient and agreed with proceeding with MRI of the brain to rule out CVA; no further surgical interventions was recommended and patient was recommended follow-up with primary orthopedic surgeon Patient Condition at Discharge: Fair Plan - Discharge Summary Discharge Rx Participant: No New Discharge Prescriptions: New Ketorolac [Toradol] 10 mg PO Q6HR 4 Days #14 tab lisinopriL [Zestril] 10 mg PO DAILY 30 Days #30 tab Continue Omeprazole [PriLOSEC] 20 mg PO DAILY Multivitamins, Thera [Multivitamin (formulary)] 1 tab PO DAILY Ibuprofen [Motrin] 800 mg PO Q8H PRN PRN Reason: Pain Discharge Medication List Ibuprofen [Motrin] 800 mg PO Q8H PRN 06/03/22 [History] Multivitamins, Thera [Multivitamin (formulary)] 1 tab PO DAILY 06/03/22 [History] Omeprazole [PriLOSEC] 20 mg PO DAILY 06/03/22 [History] Ketorolac [Toradol] 10 mg PO Q6HR 4 Days #14 tab 06/04/22 [Rx] lisinopriL [Zestril] 10 mg PO DAILY 30 Days #30 tab 06/04/22 [Rx] Follow up Appointment(s)/Referral(s): Kamala Neves MD [Primary Care Provider] - 06/09/22 10:30 am Jarocho Grubbs MD [REFERRING] - 1 Week Discharge Disposition: HOME SELF-CARE
[2022-06-04] MEDS: ACETAMINOPHEN TAB 325 MG TAB PO PRN (15:25)
== END 2022-06-04 15:45 | disposition home or self-care (01) ==
LOC: EC 09:28 → 3SCARD 13:31 → 2SICU 23:13
PROVIDERS: ADMIT Internal Medicine; ATTEND Internal Medicine
DX: M54.2 Cervicalgia (principal); G89.29 Other chronic pain; K21.9 Gastro-esophageal reflux disease without esophagitis; N17.9 Acute kidney failure, unspecified; M54.10 Radiculopathy, site unspecified; I10 Essential (primary) hypertension; E04.1 Nontoxic single thyroid nodule; Z79.899 Other long term (current) drug therapy
CPT/HCPCS: 96376; 96375; 96374; 99285; 36415; 93005; 97162; 97166; 80048 ×2; 84443; 82607; 82746; 84484; 85025 ×2; 85610; 85730; 83036; 70496; 70498; 70553; G0378 ×2; J0360; J1885 ×2; Q9967; A9585

== ENCOUNTER → 2022-11-06 | Outpatient (CLI) | payer BC ==
--- NOTE | 2022-11-06 14:31 | XR ---
EXAMINATION TYPE: XR chest 2V DATE OF EXAM: 11/06/2022 COMPARISON: 02/23/2012 TECHNIQUE: PA and lateral views submitted. HISTORY: Presurgical FINDINGS: The lungs are clear and there is no pneumothorax, pleural effusion, or focal pneumonia. Heart size normal and no overt failure. Osseous structures demonstrate postsurgical change overlying the cervica l spine. Mild atherosclerotic change aorta. Biapical pleural thickening. IMPRESSION: 1. No acute process.
[2022-11-06 16:19] LABS: Partial Thromboplastin Time 24.9 sec (22.0-30.0)
[2022-11-06 22:48] LABS: Basophils # (A) 0.16 X 10*3/uL (0.00-0.10); Basophils % (A) 1.5 %; Eosinophils # (A) 0.59 X 10*3/uL (0.04-0.35); Eosinophils % (A) 5.7 %; HCT 46.1 % (39.6-50.0); HGB 15.1 d/dL (12.0-15.0); Lymphocytes # (A) 4.18 X 10*3/uL (0.90-5.00); Lymphocytes % (A) 40.1 %; MCH 32.7 pg (27.0-32.0); MCHC 32.8 d/dL (32.0-37.0); MCV 99.8 FL (80.0-97.0); Mean Platelet Volume 10.6 FL (9.5-12.2); Monocytes # (A) 1.03 X 10*3/uL (0.20-1.00); Monocytes % (A) 9.9 %; NRBC Per 100 WBC 0 X 10*3/uL (0.00-0.01); Neutrophils # (A) 4.41 X 10*3/uL (1.80-7.70); Neutrophils % (A) 42.3 %; Platelet Count 247 X 10*3/uL (140-440); RBC 4.62 X 10*6/uL (4.40-5.60); RDW 14.3 % (11.5-14.5); WBC 10.42 X 10*3/uL (4.50-10.00)
[2022-11-07 02:43] LABS: Appearance,Urine Clear (Clear); Bilirubin,Urine Negative (Negative); Blood,Urine Negative (Negative); Color,Urine Yellow (Yellow); Ketones,Urine Negative (Negative); Nitrite,Urine Negative (Negative); Specific Gravity,Urine 1.021 (1.001-1.030); Urobilinogen,Urine 0.2
[2022-11-07 03:10] LABS: INR 0.9 (<1.2)
[2022-11-07 04:20] LABS: ALT 39 U/L (10-49); AST 36 U/L (14-35); Albumin 4.7 d/dL (3.8-4.9); Albumin/Globulin Ratio 1.68 Ratio (1.60-3.17); Alkaline Phosphatase 82 U/L (41-126); Blood Urea Nitrogen 16.2 mg/dL (9.0-27.0); Calcium 10.1 mg/dL (8.7-10.3); Carbon Dioxide 20.9 mmol/L (21.6-31.8); Chloride 104 mmol/L (96-109); Globulin 2.8 d/dL (1.6-3.3); Glucose 80 mg/dL (70-110); Potassium 4.3 mmol/L (3.5-5.5); Sodium 138 mmol/L (135-145); Total Bilirubin 0.3 mg/dL (0.3-1.2); Total Protein 7.5 d/dL (6.2-8.2)
== END | disposition home or self-care (01) ==
LOC: RADXRMAIN 14:10
PROVIDERS: ATTEND Neurological Surgery
DX: Z01.818 Encounter for other preprocedural examination (principal)
CPT/HCPCS: 71046; 80053; 81003; 83036; 85025; 85610; 85730; 87070; 87086

== ENCOUNTER → 2023-07-17 | Outpatient (CLI) | payer BC ==
--- NOTE | 2023-07-17 11:04 | CT ---
EXAMINATION TYPE: CT brain cspine wo con DATE OF EXAM: 07/17/2023 COMPARISON: None available. HISTORY: Neck pain with history of pain stimulator and cervical laminectomy. CT DLP: 1791.70 mGycm Automated exposure control for dose reduction was used. TECHNIQUE: CT scan of the head and cervical spine are performed without contrast. FINDINGS: There is no acute intracranial hemorrhage, mass effect, or midline shift identified. The ventricles and sulci are within normal limits in size. The globes are intact. There is moderate diff use mucosal thickening within the visualized paranasal sinuses. The mastoid air cells appear relative ly clear. Cervical spine is visualized in its entirety from C1 through upper thoracic levels and demonstrates s atisfactory alignment without evidence of acute fracture or dislocation. There is an anterior cervica l spine fusion at C5-6 and C6-7. Posterior spinal fusion is seen between C5 and C7. There are no acut e osseous abnormalities. Neurostimulator leads are seen within the posterior cervical canal at C2. Th ere is no prevertebral soft tissue swelling. IMPRESSION: 1. There is no acute fracture or dislocation evident in the cervical spine. Prior surgical changes as above. 2. No acute intracranial hemorrhage, mass effect, or midline shift is seen. 3. Chronic mucosal thickening within the sinuses.
== END | disposition home or self-care (01) ==
LOC: RADCTMAIN 09:39
PROVIDERS: ATTEND Neurological Surgery
DX: J34.89 Other specified disorders of nose and nasal sinuses (principal); M96.1 Postlaminectomy syndrome, not elsewhere classified; Z96.89 Presence of other specified functional implants; Z98.890 Other specified postprocedural states
CPT/HCPCS: 70450; 72125

== ENCOUNTER → 2023-10-19 | Outpatient (CLI) | payer BC ==
--- NOTE | 2023-10-19 13:03 | XR ---
EXAMINATION TYPE: XR chest 2V DATE OF EXAM: 10/19/2023 12:48 PM CLINICAL INDICATION:Male, 58 years old with history of J32.9 CHRONIC SINUSITIS, UNSPECIFIED M54.12 RA DICU; [facility] COMPARISON: Chest radiographs from 11/06/2022 TECHNIQUE: XR chest 2V Frontal and lateral views of the chest. FINDINGS: Lungs/Pleura: There is no evidence of pleural effusion, focal consolidation, or pneumothorax. Pulmonary vascularity: Unremarkable. Heart/mediastinum: Cardiomediastinal silhouette is unremarkable. Musculoskeletal: No acute osseous pathology. Stimulator leads present. Surgical changes the neck appear intact. IMPRESSION: No acute cardiopulmonary disease/process.
[2023-10-19 13:54] LABS: INR 0.9 (<1.2); Partial Thromboplastin Time 25.6 sec (22.0-30.0); Prothrombin Time 9.8 sec (10.0-12.5)
[2023-10-19 14:13] LABS: Appearance,Urine Clear (Clear); Bilirubin,Urine Negative (Negative); Blood,Urine Negative (Negative); Color,Urine Yellow; Glucose,Urine (UA) Negative (Negative); Ketones,Urine Negative (Negative); Leukocyte Esterase,Urine Negative (Negative); Nitrite,Urine Negative (Negative); PH, Urine 5.5 (5.0-8.0); Protein,Urine Trace (Negative); Specific Gravity,Urine 1.023 (1.001-1.035); Urobilinogen,Urine <2.0 mg/dL (<2.0)
[2023-10-19 18:50] LABS: Basophils # (A) 0.13 X 10*3/uL (0.00-0.10); Basophils % (A) 1.4 %; Eosinophils # (A) 0.49 X 10*3/uL (0.04-0.35); Eosinophils % (A) 5.1 %; HCT 42.7 % (39.6-50.0); HGB 14.6 g/dL (13.0-17.0); Lymphocytes # (A) 3.95 X 10*3/uL (0.90-5.00); Lymphocytes % (A) 41.1 %; MCH 31.9 pg (27.0-32.0); MCHC 34.2 g/dL (32.0-37.0); MCV 93.4 FL (80.0-97.0); Mean Platelet Volume 10.6 FL (9.5-12.2); Monocytes # (A) 0.78 X 10*3/uL (0.20-1.00); Monocytes % (A) 8.1 %; NRBC Per 100 WBC 0 X 10*3/uL (0.00-0.01); Neutrophils # (A) 4.19 X 10*3/uL (1.80-7.70); Neutrophils % (A) 43.7 %; Platelet Count 268 X 10*3/uL (140-440); RBC 4.57 X 10*6/uL (4.40-5.60); RDW 14.1 % (11.5-14.5)
[2023-10-19 19:02] LABS: ALT 37 U/L (10-49); AST 25 U/L (14-35); Albumin 4.7 g/dL (3.8-4.9); Albumin/Globulin Ratio 1.88 Ratio (1.60-3.17); Alkaline Phosphatase 101 U/L (41-126); BUN/Creat Ratio 19.12 Ratio (12.00-20.00); Blood Urea Nitrogen 15.3 mg/dL (9.0-27.0); Carbon Dioxide 20.1 mmol/L (21.6-31.8); Chloride 100 mmol/L (96-109); Globulin 2.5 g/dL (1.6-3.3); Glucose 128 mg/dL (70-110); Potassium 4.1 mmol/L (3.5-5.5); Sodium 137 mmol/L (135-145); Total Bilirubin 0.4 mg/dL (0.3-1.2); Total Protein 7.2 g/dL (6.2-8.2)
--- NOTE | 2023-10-21 06:40 | CT ---
EXAMINATION TYPE: CT sinus wo con DATE OF EXAM: 10/19/2023 COMPARISON: CT brain July 17, 2023 HISTORY: CHRONIC SINUSITIS, CT DLP: 572 mGycm. Automated Exposure Control for Dose Reduction was Utilized. TECHNIQUE: CT scan of the sinuses is performed without contrast, axial images are obtained, coronal r eformatted images are also reviewed. FINDINGS: Mild to minimal mucosal thickening bilateral maxillary sinuses on current study with depend ent fluid. Focal mild mucosal thickening anterior sphenoid sinuses with additional mild peripheral mu cosal thickening right sphenoid sinus. Mild mucosal thickening bilateral ethmoid sinuses. Ostiomeatal complexes are patent bilaterally with some left-sided narrowing noted. Visualized portion of mastoid air cells show no abnormal opacification. Bilateral scleral calcificati ons are seen. Visualized brain parenchyma is unremarkable. IMPRESSION: Some acute bilateral maxillary sinusitis on background chronic paranasal sinus disease no [place] as detailed above.
== END | disposition home or self-care (01) ==
LOC: RADCTMAIN 12:19
PROVIDERS: ATTEND Otolaryngology
DX: M54.12 Radiculopathy, cervical region (principal); J34.89 Other specified disorders of nose and nasal sinuses; J01.00 Acute maxillary sinusitis, unspecified
CPT/HCPCS: 70486; 71046; 80053; 81003; 83036; 85025; 85610; 85730; 87070